=== PATIENT | female | born 1935 | race Caucasian/White ===

== ENCOUNTER 2017-12-28 12:18 | Inpatient (IN) ==
[2017-12-28] MEDS ORDERED: *HR* Labetalol 20 MG/4 ML SYRINGE IVP PRN (12:37)
[2017-12-28] MEDS ORDERED: MORPHINE SUL Oral CONC 10 MG/0.5 ML ORAL.SYG SL PRN (12:37)
[2017-12-28] MEDS ORDERED: *HR* OxyCODONE Immed Rel 5 MG TABLET PO PRN ×2 (12:37→17:49)
--- NOTE | 2017-12-28 13:35 | History & Physical Report ---
Date of Encounter: 12/28/17 Time of Encounter: 13:34 24 Hour HP Update - Instructions Instructions: If the History and Physical is less than 30 days old and was completed prior to A.M. admission and or procedure and has NOT been updated on calendar day of procedure please complete this update prior to performing procedure. - Update Patient reports changes in Medical Condition: No Changes in examination, assessment, or condition: No Changes in Medication: No Preop tests/diagnostics Reviewed: Yes Surgery Remains Indicated: Yes Consent for Planned Operative Procedure(s) Verified: Yes - Pre-Operative Checklist Preoperative Checklist Indicated: No Prophylactic Antibiotic Ordered: Yes Is VTE Prophylaxis Indicated?: Yes
[2017-12-28] MEDS ORDERED: CeFAZolin Syr 2,000MG/20 ML 2,000 MG/20 ML SYRINGE IVPB ONE (13:40)
[2017-12-28] MEDS ORDERED: 0.9 % Sodium Chloride 500 ML IVC SCH (13:45)
--- NOTE | 2017-12-28 14:00 | Anesthesia Evaluation PreOp ---
Date of Encounter: 12/28/17 Time of Encounter: 13:58 - Past History Planned Operation: Right Total Shouder Cardiac History: HTN Pulmonary History: Other (Pulm. Nodule, mediastinal Lymphadenomathy (benign)) ATM SERVICER History: Other (A/D) Other Medical History: GERD, Other (Dementia) Anesthesia History: No Prior Anesthetic Complications, Past Anesthesia (Eye sx) : No Alcohol Use: none Drug use: none Medications and Allergies Amlodipine Besylate 10 mg PO DAILY 12/28/17 [History] Aspirin [Lo-Dose Aspirin EC] 81 mg PO DAILY 12/28/17 [History] Divalproex Sodium [Depakote] 125 mg PO BID 12/28/17 [History] Guaifenesin [Cough Syrup] 100 mg PO Q6H PRN 12/28/17 [History] HYDROcodone/Acet 5/325 mg [[place]bert 5-325 mg] 1 tab PO Q4H PRN 12/28/17 [History] Ipratropium/Albuterol Neb [Duoneb] 3 ml IH Q6HR 12/28/17 [History] LORazepam [Ativan] 0.5 mg PO TID 12/28/17 [History] Lisinopril [Zestril] 10 mg PO DAILY 12/28/17 [History] Loperamide HCl [Anti-Diarrheal] 2 mg PO Q4H PRN 12/28/17 [History] Lovastatin [Mevacor] 20 mg PO HS 12/28/17 [History] Mirtazapine [Remeron] 15 mg PO HS 12/28/17 [History] Omeprazole [PriLOSEC] 20 mg PO DAILY 12/28/17 [History] OxyCODONE Immed Rel [Roxicodone 5 MG] 5 mg PO Q4HR PRN 5 Days #20 tablet [Rx] Sertraline [Zoloft] 25 mg PO DAILY 12/28/17 [History] Tramadol HCl [Ultram] 50 mg PO QID PRN 12/28/17 [History] 3 Allergy/AdvReac Type Severity Reaction Status Date / Time acetaminophen [From Tylenol] Allergy See Verified 12/27/17 09:48 Comments Neomycin Allergy See Verified 12/27/17 09:48 Comments - Meds/Allergy Pre-op Review Medications Reviewed: Yes Allergies Reviewed: Yes Beta Blockers on Current Med List: No Anesthesia Results - Labs Laboratory Tests 12/27/17 12/27/17 12/27/17 09:10 09:10 09:10 WBC 7.9 Hgb 12.2 Hct 39.8 Plt Count 297 INR 1.1 Sodium 138 Potassium 4.1 Chloride 102 Carbon Dioxide 28 BUN 32 H Creatinine 1.39 H - Imaging EKG: report reviewed (SR) Anesthesia Exam Blood glucose: 87 - HEENT Pupil (Motor): Pupils equal, EOMI Mallampati: III Teeth: Edentulous Denture Type: Upper: Complete, Lower: Complete Oral Opening: Greater than 3 - ATM SERVICER LOC: Oriented ATM SERVICER Motor: Normal RUE, Normal LUE, Normal RLE, Normal LLE, Normal Face ATM SERVICER Sensory: Normal: RUE, LUE, RLE, LLE, Face - Cardiac Rhythm: Regular Murmur: None JVD: No Carotid Bruit: No - Pulmonary Breath Sounds: bilateral Clear Respiratory Effort: Symmetrical Anesthesia Assess/Plan ASA Score: 3 Anesthetic Plan: General, Regional Autologous Blood: Yes Monitoring Plan: Standard Monitors Recovery Plan: PACU
--- NOTE | 2017-12-28 14:19 | Discharge Summary ---
Orders not resulted at time of discharge: Pending orders 12/28/17 11:59 XR shoulder complete RT [XR] Routine Hemoglobin and Hematocrit [HEME] Routine 12/28/17 13:58 US anesthesia pain block [US] Routine Date of Encounter: 12/31/17 Time of Encounter: 06:46 - Discharge Diagnosis (1) Displaced fracture of proximal end of right humerus Priority: Primary Status: Acute (2) Dementia Priority: Primary Status: Acute Qualifiers: Dementia type: unspecified type Dementia behavioral disturbance: without behavioral disturbance Qualified Code(s): F03.90 - Unspecified dementia without behavioral disturbance (3) Pulmonary nodule Priority: Secondary Status: Chronic (4) Status post reverse total replacement of right shoulder Priority: Primary Status: Acute (5) Hypertension Priority: Secondary Status: Chronic Qualifiers: Hypertension type: unspecified Qualified Code(s): I10 - Essential (primary ) hypertension - Hospital Course Hospital course: Ms. Murray is a 82 year old female The patient had an uneventful postoperative course. They received antibiotics and physical therapy and were discharged in stable condition. There will follow -up in the office in 2 weeks. Status post total shoulder replacement - Time Spent with Patient Total time spent providing and/or coordinating discharge services: - Discharge Medications Home Medications: Amlodipine Besylate 10 mg PO DAILY 12/28/17 [History] Aspirin [Lo-Dose Aspirin EC] 81 mg PO DAILY 12/28/17 [History] Divalproex Sodium [Depakote] 125 mg PO BID 12/28/17 [History] Guaifenesin [Cough Syrup] 100 mg PO Q6H PRN 12/28/17 [History] HYDROcodone/Acet 5/325 mg [[place]arrison 5-325 mg] 1 tab PO Q4H PRN 12/28/17 [History] Ipratropium/Albuterol Neb [Duoneb] 3 ml IH Q6HR 12/28/17 [History] LORazepam [Ativan] 0.5 mg PO TID 12/28/17 [History] Lisinopril [Zestril] 10 mg PO DAILY 12/28/17 [History] Loperamide HCl [Anti-Diarrheal] 2 mg PO Q4H PRN 12/28/17 [History] Lovastatin [Mevacor] 20 mg PO HS 12/28/17 [History] Mirtazapine [Remeron] 15 mg PO HS 12/28/17 [History] Omeprazole [PriLOSEC] 20 mg PO DAILY 12/28/17 [History] OxyCODONE Immed Rel [Roxicodone 5 MG] 5 mg PO Q4HR PRN 5 Days #20 tablet [Rx] Sertraline [Zoloft] 25 mg PO DAILY 12/28/17 [History] Tramadol HCl [Ultram] 50 mg PO QID PRN 12/28/17 [History] Allergies/Adverse Reactions: 3 Allergy/AdvReac Type Severity Reaction Status Date / Time acetaminophen [From Tylenol] Allergy See Verified 12/27/17 09:48 Comments Neomycin Allergy See Verified 12/27/17 09:48 Comments Primary care physician: Olu Fernandez - Patient Status Disposition: Transfer LTC Condition: Good Functional capacity at discharge: independent ambulation Overall status at discharge: patient is progressing back to baseline - Discharge Instructions Follow Up With: Gordo Deng MD [Partnered Physician] - 01/30/18 4:35 pm Jami Sen PAC [Physician Xerox Machine Assembler] - 01/08/18 10:30 am Olu Fernandez [Primary Care Provider] - Additional Instructions: Discharge Instructions: Total Shoulder Please call [facility] ([phone]), your Primary Care Physician, or report to the Emergency Room if you have any of the following symptoms: Nausea, vomiting, fever greater that 101.5, swelling, chest pain, shortness of breath, increased pain/redness/drainage/odor for your incision site, numbness/ tingling, or any other concerning symptoms. ACTIVITY: Always keep your arm in the sling. Do not raise your arm away from your body. Do not use your arm to help with getting in or out of bed. No weight bearing permitted. Only perform those exercises given to you by your therapist. MEDICATIONS: Upon discharge resume your home medications. Take all the medications as prescribed. Take a stool softener if taking narcotic pain medications. Stool softeners are only effective if you drink enough fluids. Drink 6-8 glass of water or fluids a day, unless this is not allowed for another health problem. Despite using stool softeners, if you haven't had a bowel movement in 3 days, please switch to a gentle laxative. Gentle laxatives are sold over the counter. You should have a bowel movement within 24 hours, if not call the office. You will be discharged from the hospital with a prescription for pain medication. You are encouraged to decrease the use of narcotic pain medication as tolerated. Should you require a refill, please call the office. [facility] prescribes narcotic pain medication for only 4-6 weeks after surgery. If you require pain medication beyond this time period, you may be referred to your Primary Care Physician or to the Pain Clinic for further evaluation. Plan ahead for refills on pain medication as many narcotics either need to be picked up at the office or mailed. It is best to call 48-72 hours in advance of needing a prescription refill so you don't run out of medication. To help control the post-operative pain, you may take NSAIDs (Aleve,Advil, Motrin, Ibuprofen, Naprosyn) or Tylenol as prescribed on the bottle in addition to the pain medication. WOUND CARE: Leave the dressing on for 7-10 days. You may change the dressing if it becomes saturated greater than 50%. Do not get the dressing wet at anytime. Wash your hands with antibacterial soap, rinse and dry prior to any wound care. If you have carla the visiting nurse or rehab facility can remove the stapes 10-14 days after surgery and place steri-strips across the wound. Leave the steri-strips in place until they fall off on their own. You may let water from the shower run on top of the steri-strips. If you do not have a visiting nurse or rehab facility, you will need to return to the office at 10-14 days for the carla to be removed. If you have itching or redness around the dressing call the office. FOLLOW-UP: Please follow up with your surgeon in the orthopedic clinic, as scheduled
[2017-12-28] MEDS ORDERED: *HR* Midazolam HCl 2 MG/2 ML VIAL ONE (14:35)
[2017-12-28] MEDS ORDERED: *HR* FentaNYL (PF) 100 MCG/2 ML VIAL ONE ×2 (14:35→14:47)
[2017-12-28] MEDS ORDERED: *HR* Propofol 200 MG/20 ML VIAL IVP ONE ×2 (14:36→14:43)
[2017-12-28] MEDS ORDERED: Lidocaine -MPF 4% 5 ML AMPUL ONE (14:40)
[2017-12-28] MEDS ORDERED: *HR* Succinylcholine 200 MG/10 ML VIAL IVP ONE (14:42)
[2017-12-28] MEDS ORDERED: ROPIVACAINE HCL/PF 0.5% 30 ML VIAL ONE (14:46)
[2017-12-28] MEDS ORDERED: Bupivacaine/Clonidine Syringe 1 EACH SYRINGE ONE (14:46)
[2017-12-28] MEDS ORDERED: Lidocaine -MPF 2% 2 ML VIAL ONE (14:48)
--- NOTE | 2017-12-28 15:05 | Anesthesia Procedures ---
Date of Encounter: 12/28/17 Time of Encounter: 14:55 Procedures: Anesthesia - Nerve Block Procedure Date: 12/28/17 Time: 14:55 Surgical Procedure: Right Total Shoulder Checklist: Correct Patient Identifier, Correct procedure, History checked Correct side: Right Blood Thinner: No Monitor Applied: EKG, BP, Pulse Oximetry Supplemental Oxygen via Nasal Cannula (L/min): 2 Sedation: Versed (mg): 2 Sedation: Fentanyl (mcg): 100 Pre-op Neuro Deficits: Yes (Dementia, INUPIAT) Block Type: Supraclavicular Catheter placed: No Sterile Technique: Yes Ultrasound used: Yes Anatomy identified: Yes Visual spread of Local: Yes Neuro Stimulation: No Blood on Needle Aspiration: No Smooth Injection of Local: Yes Pain with Injection of Local: No Prep: Chlorhexadine Local: 0.25% Bupivicaine w/Clonidine 20 mcg/cc, Ropivacaine Volume (cc): 40 Number of Attempts: 1 Complications: None/effective block Vitals: Last Vital Signs Temp 98.0 F 12/28/17 13:54 Pulse 80 12/28/17 15:04 Resp 16 12/28/17 15:04 BP 114/70 12/28/17 15:04 Pulse Ox 99 12/28/17 15:04
[2017-12-28] MEDS ORDERED: Dexamethasone 4 MG/ML VIAL ONE (15:13)
--- NOTE | 2017-12-28 16:05 | Physician Discharge Referral ---
ExtendedCare Referral Info Transfer To: [facility] Provider in Charge: Dr Deng - Diagnosis (1) Displaced fracture of proximal end of right humerus Priority: Primary Status: Acute (2) Dementia Priority: Secondary Status: Acute (3) Pulmonary nodule Priority: Secondary Status: Chronic (4) Status post reverse total replacement of right shoulder Priority: Primary Status: Acute (5) Hypertension Priority: Secondary Status: Chronic Expected Duration of Placement: less than 30 days Prognosis: Good Aware of Diagnosis: Patient Aware of Prognosis: Patient - Transfer Medications Prescriptions: OxyCODONE Immed Rel [Roxicodone 5 MG] 5 mg PO Q4HR PRN 5 Days #20 tablet PRN Reason: Pain Home Medications: Amlodipine Besylate 10 mg PO DAILY 12/28/17 [History] Aspirin [Lo-Dose Aspirin EC] 81 mg PO DAILY 12/28/17 [History] Divalproex Sodium [Depakote] 125 mg PO BID 12/28/17 [History] Guaifenesin [Cough Syrup] 100 mg PO Q6H PRN 12/28/17 [History] HYDROcodone/Acet 5/325 mg [[place] 5-325 mg] 1 tab PO Q4H PRN 12/28/17 [History] Ipratropium/Albuterol Neb [Duoneb] 3 ml IH Q6HR 12/28/17 [History] LORazepam [Ativan] 0.5 mg PO TID 12/28/17 [History] Lisinopril [Zestril] 10 mg PO DAILY 12/28/17 [History] Loperamide HCl [Anti-Diarrheal] 2 mg PO Q4H PRN 12/28/17 [History] Lovastatin [Mevacor] 20 mg PO HS 12/28/17 [History] Mirtazapine [Remeron] 15 mg PO HS 12/28/17 [History] Omeprazole [PriLOSEC] 20 mg PO DAILY 12/28/17 [History] OxyCODONE Immed Rel [Roxicodone 5 MG] 5 mg PO Q4HR PRN 5 Days #20 tablet [Rx] Sertraline [Zoloft] 25 mg PO DAILY 12/28/17 [History] Tramadol HCl [Ultram] 50 mg PO QID PRN 12/28/17 [History] Allergies/Adverse Reactions: 3 Allergy/AdvReac Type Severity Reaction Status Date / Time acetaminophen [From Tylenol] Allergy See Verified 12/27/17 09:48 Comments Neomycin Allergy See Verified 12/27/17 09:48 Comments - Respiratory Orders Smoking Cessation: Smoking cessation has been advised. For more information, call the [place] Tobacco Quit Line at 3-244-DFEM-NOW. - Ancillary Orders May use pressure relief devices daily prn, May go on AUGIE w/family/respon republican w /meds at nurse discretion PRN, May consult with Dentist, Plasma Specialist, Tankroom Worker PRN - Mobility Orders Chair, Ambulate - Rehabiliation Orders Rehab Potential: Good Rehab Orders: Evaluation for Physical Therapy, Evaluation for Occupational Therapy Other: PT/OT to elbow, wrist, hand and ADL retraining ONLY. NO SHOULDER MOTION. NWB to affected upper extremity. Follow Shoulder Precautions x 6 weeks. Stay in brace. ICE extremity frequently throughout the day. - Treatments Skin tear care topically daily PRN per policy List/Other: Opsite placed. Keep dressing intact until first follow up appointment. If > 50% saturated, notify office, remove dressing and place appropriate dressing back in place. Leave Jayashree/Zipline intact. Opsite dressing is water resistant, not water-proof. OK to shower, but do not get dressing wet. - Diet Orders Regular CERTIFICATION: I certify that the transfer of the above named patient to an Extended Care Facility is necessary for the continuing treatment of the diagnosis listed. The above information is true and accurate reflection of patient's current condition. Confidential - Redisclosure prohibited without a patient's written consent.
[2017-12-28] MEDS ORDERED: *HR* Morphine 2 MG/ML SYRINGE IVP PRN (16:08)
--- NOTE | 2017-12-28 16:38 | Orthopedic Operative Note ---
Date of procedure: 12/28/17 Pre-op diagnosis: Displaced right proximal humerus fracture Post-op diagnosis: same Procedure: Procedure: Total Shoulder Replacment Reverse, right Estimated blood loss: 100 cc Hardware: Metal and polyethylene replacement: Arthrex large glenoid baseplate, 2 4.5 screws. 1 6.5 screw, 42+4 glenosphere, 8 humeral stem, poly insert 3 constrained Procedural Notes: Displaced fracture right proximal humerus Operative procedure: The patient was brought to the operating room and placed on the operating room table. After general anesthesia was administered the operative shoulder was examined. Findings were noted. The patient was placed in the modified beachchair position. All pressure points were padded appropriately. And the head was stabilized in the neutral position. The operative extremity was prepped and draped in the sterile surgical fashion. The patient received IV antibiotics prior to skin incision. A standard deltopectoral approach was made to the operative shoulder. Incision was made to the skin and subcutaneous tissue,hemo stasis was obtained with Bovie cautery. Using careful blunt dissection the cephalic vein was identified and mobilized medially. The deltopectoral interval was developed and the clavipectoral fascia was incised. The subscap was released off the lesser tuberosity and tagged with #2 FiberWire suture. The humeral head was completely fractured off and was removed without incident. Anterior and posterior Bankart retractors were placed to expose the glenoid. The glenoid guide was seated and the centering hole was made. It was reamed with the appropriate reamer. The large baseplate was seated and secured with (2) 4.5 screws and one 6.5 screw. The baseplate was irrigated and dried and the 42+4 Glenosphere was seated and secured with the Philippe taper. The Philippe taper was tested and found to be secure the humerus was redislocated and prepared with the diaphyseal reamers, followed by a broaching process up to the appropriate size 8 in the patient's anatomic version. Trial reduction found the shoulder to be relocatable. Trial components were removed the 8 stem was seated and secured in 20 degrees of retroversion Trial reduction found the shoulder to be relocatable and stable with the appropriate 3 constrained Trial component was removed and the real implant was seated and secured the shoulder was reduced. The shoulder had excellent motion and excellent stability and no evidence of dislocation. The deep tissue was irrigated with pulse irrigation. The deltopectoral interval was closed with a running #1 PDS suture, subcutaneous tissue was irrigated and closed with 0 PDS suture, the skin was closed with Dermabond. The patient was placed in a sterile dressing, abduction brace and extubated. The patient was then transferred to the recovery room in stable condition. Anesthesia: GETA Surgeon: Gordo Deng Was there an laboratory assistant present: No Estimated blood loss (cc): 100 Condition: stable Disposition: PACU
[2017-12-28] MEDS ORDERED: *HR* PHENYLEPHRINE 1,000 MCG/10 ML SYRINGE IVP ONE (16:44)
[2017-12-28] MEDS ORDERED: *HR* Dextrose 50 % in Water (Syg) 50 ML SYRINGE IVP ONE (17:05)
[2017-12-28] MEDS ORDERED: *HR* Dextrose 50 % in Water (Syg) 50 ML SYRINGE ONE (17:07)
--- NOTE | 2017-12-28 17:38 | Anesthesia Evaluation Post Op ---
Date of Encounter: 12/28/17 Time of Encounter: 17:36 - Vital Signs Vital Signs: vss - Lungs Lungs: Clear Ascult./Percussion - Airway Airway: Non-obstructed - Cardiovascular Baseline Rhythm - Mental Status Mental Status: Asleep with brisk response to light stimulation, Baseline Status - Pain Pain Scale used: Victor Hugo (Faces) - Nausea Vomiting Nausea Vomiting: Not Present - Hydration Hydration: Ice chips - Discharge PostOp Status: Transfer Patient to floor
[2017-12-28] MEDS ORDERED: Sennosides 8.6 MG TABLET PO PRN (17:49)
[2017-12-28] MEDS ORDERED: MOM Conc 10 ML UD.LIQ PO PRN (17:49)
[2017-12-28] MEDS ORDERED: Ondansetron 4 MG/2 ML VIAL IVP PRN (17:49)
[2017-12-28] MEDS ORDERED: GuaiFENesin Liq 200 MG/10 ML UDC PO PRN (17:49)
[2017-12-28] MEDS ORDERED: Naloxone 0.4 MG/ML INJ IVP PRN (17:49)
[2017-12-28] MEDS ORDERED: Temazepam 15 MG CAPSULE PO PRN (17:49)
[2017-12-28] MEDS ORDERED: CeFAZolin Premix DUPLEX 2,000 MG/50 ML BAG IVPB SCH (18:00)
[2017-12-28] MEDS ORDERED: Ipratropium/Albuterol Neb 3 ML IH SCH (18:00)
[2017-12-28] MEDS ORDERED: *HR* Enoxaparin 30 MG/0.3 ML SYRINGE SQ SCH (18:00)
[2017-12-28 18:20] LABS: Hematocrit 35.7 % (35.3-44.9); Hemoglobin 11.3 g/dL (11.5-15.4)
[2017-12-28] MEDS: *HR* LORazepam 0.5 MG TABLET PO SCH ×2 (18:43→21:18)
[2017-12-28] MEDS: *HR* Enoxaparin 30 MG/0.3 ML SYRINGE SQ SCH (18:46)
[2017-12-28] MEDS ORDERED: Mirtazapine 15 MG TABLET PO SCH (21:00)
[2017-12-28] MEDS: Divalproex Sodium 125 MG CAPSULE PO SCH (21:18)
[2017-12-28] MEDS: Ipratropium/Albuterol Neb 3 ML IH SCH (22:14)
[2017-12-29] MEDS: CeFAZolin Premix DUPLEX 2,000 MG/50 ML BAG IVPB SCH ×2 (00:34→09:26)
[2017-12-29] MEDS: *HR* OxyCODONE Immed Rel 5 MG TABLET PO PRN ×2 (00:34→06:54)
[2017-12-29] MEDS: Ringers Solution, Lactated 1,000 ML IVC SCH ×2 (00:37→09:57)
[2017-12-29 01:54] LABS: Hematocrit 33.5 % (35.3-44.9); Hemoglobin 10.6 g/dL (11.5-15.4)
[2017-12-29] MEDS: Ipratropium/Albuterol Neb 3 ML IH SCH ×2 (04:28→10:10)
[2017-12-29] MEDS: *HR* Enoxaparin 30 MG/0.3 ML SYRINGE SQ SCH (06:50)
[2017-12-29] MEDS ORDERED: Aspirin Enteric Coated 81 MG Tablet PO SCH (09:00)
[2017-12-29] MEDS ORDERED: amLODIPine 5 MG TABLET PO SCH (09:00)
[2017-12-29 09:15] VITALS: BP 156/78
[2017-12-29] MEDS: Divalproex Sodium 125 MG CAPSULE PO SCH (09:29)
[2017-12-29] MEDS: *HR* LORazepam 0.5 MG TABLET PO SCH (09:29)
--- NOTE | 2017-12-29 11:01 | Orthopedics Progress Note ---
Date of Encounter: 12/29/17 Time of Encounter: 10:59 Subjective Interval history: S: Doing fine first day s/p R Reverse TSA. Pain appears well controlled. In sling. No n/v O: AFVSS GEN: NAD RUE: Dress c/d/i Wiggles fingers 2+ RP A/P: POD#1 s/p R reverse TSA -Continue sling, no ROM of shoulder -Ok to return to [facility] if comfortable later today -F/u as scheduled Objective Vital signs: Vital Signs Temp Pulse Resp BP Pulse Ox 12/29/17 10:12 18 91 12/29/17 09:13 105 15 156/78 95 12/29/17 04:52 99.6 F 123 16 154/88 94 12/29/17 04:28 14 100 12/28/17 18:52 97.7 F 73 15 150/75 100 12/28/17 18:26 97.6 F 74 15 148/74 96 12/28/17 18:01 97.6 F 72 15 131/79 98 12/28/17 17:46 98.9 F 72 16 139/74 98 12/28/17 17:36 98.9 F 79 18 120/92 96 12/28/17 17:26 71 18 151/81 98 12/28/17 17:16 97.4 F L 75 21 140/79 99 12/28/17 17:06 74 19 154/83 98 12/28/17 16:56 78 16 139/70 97 12/28/17 16:46 99.0 F 70 16 165/87 94 12/28/17 15:32 77 17 94/66 100 12/28/17 15:16 82 16 105/71 100 12/28/17 15:04 80 16 114/70 99 12/28/17 14:52 94 18 155/87 100 12/28/17 13:54 98.0 F 93 18 142/81 94 12/28/17 12:49 98.0 F 93 18 142/81 94 Intake and Output 12/28/17 12/29/17 12/29/17 23:59 07:59 15:59 Intake Total 250 / 250 Output Total 100 / 100 375 / 375 Balance -90 / -90 -125 / -125 Intake: IV Fluids 50 / 50 Ancef Premix DUPLEX 2,000 mg In 50 / 50 50 ml @ 100 mls/hr IVPB Q8H CAT Rx#:[id number] Oral 200 / 200 Output: Urine 0 / 0 375 / 375 Estimated Blood Loss 100 / 100 Other: # Voids 1 Blood Glucose* 77 - Labs CBC & BMP: 12/29/17 01:03 Labs: Abnormal lab results Hgb 10.6 g/dL (11.5-15.4) L 12/29/17 01:03 Hct 33.5 % (35.3-44.9) L 12/29/17 01:03 - VTE Documentation of Mechanical Device: Venous foot pump, device Consult Discharge Plan - Plan Additional Instructions: Discharge Instructions: Total Shoulder Please call [facility] ([phone]), your Primary Care Physician, or report to the Emergency Room if you have any of the following symptoms: Nausea, vomiting, fever greater that 101.5, swelling, chest pain, shortness of breath, increased pain/redness/drainage/odor for your incision site, numbness/ tingling, or any other concerning symptoms. ACTIVITY: Always keep your arm in the sling. Do not raise your arm away from your body. Do not use your arm to help with getting in or out of bed. No weight bearing permitted. Only perform those exercises given to you by your therapist. MEDICATIONS: Upon discharge resume your home medications. Take all the medications as prescribed. Take a stool softener if taking narcotic pain medications. Stool softeners are only effective if you drink enough fluids. Drink 6-8 glass of water or fluids a day, unless this is not allowed for another health problem. Despite using stool softeners, if you haven't had a bowel movement in 3 days, please switch to a gentle laxative. Gentle laxatives are sold over the counter. You should have a bowel movement within 24 hours, if not call the office. You will be discharged from the hospital with a prescription for pain medication. You are encouraged to decrease the use of narcotic pain medication as tolerated. Should you require a refill, please call the office. [facility] prescribes narcotic pain medication for only 4-6 weeks after surgery. If you require pain medication beyond this time period, you may be referred to your Primary Care Physician or to the Pain Clinic for further evaluation. Plan ahead for refills on pain medication as many narcotics either need to be picked up at the office or mailed. It is best to call 48-72 hours in advance of needing a prescription refill so you don't run out of medication. To help control the post-operative pain, you may take NSAIDs (Aleve,Advil, Motrin, Ibuprofen, Naprosyn) or Tylenol as prescribed on the bottle in addition to the pain medication. WOUND CARE: Leave the dressing on for 7-10 days. You may change the dressing if it becomes saturated greater than 50%. Do not get the dressing wet at anytime. Wash your hands with antibacterial soap, rinse and dry prior to any wound care. If you have carla the visiting nurse or rehab facility can remove the stapes 10-14 days after surgery [address] steri-strips across the wound. Leave the steri-strips in place until they fall off on their own. You may let water from the shower run on top of the steri-strips. If you do not have a visiting nurse or rehab facility, you will need to return to the office at 10-14 days for the carla to be removed. If you have itching or redness around the dressing call the office. FOLLOW-UP: Please follow up with your surgeon in the orthopedic clinic, as scheduled Referrals: Gordo Deng MD [Partnered Physician] - 01/30/18 4:35 pm Jami Sen PAC [Physician Appliance Tester] - 01/08/18 10:30 am Olu Fernandez [Primary Care Provider] -
== END 2017-12-29 10:58 | DRG 483 ==
LOC: SAMDAY 12:18 → 3NENU 17:47
PROVIDERS: ADMIT Orthopaedic Surgery; ATTEND Orthopaedic Surgery